=== PATIENT | male | born 1995 | race African-American/Black ===

== ENCOUNTER 2022-05-25 14:10 | Outpatient (CLI) | payer OTHER | END 2022-05-25 14:11 | disposition home or self-care (01) | LOC: TBSIIMAG 14:10 | PROVIDERS: ATTEND Family Medicine | DX: S89.92XD Unspecified injury of left lower leg, subsequent encounter (principal); S83.512A Sprain of anterior cruciate ligament of left knee, initial encounter; S83.242A Other tear of medial meniscus, current injury, left knee, initial encounter; S83.282A Other tear of lateral meniscus, current injury, left knee, initial encounter; S80.02XA Contusion of left knee, initial encounter; R60.0 Localized edema ==

== ENCOUNTER 2022-08-15 06:15 | Observation (INO) | payer OTHER ==
[2022-08-14 13:42] VITALS: BMI 42.4
[2022-08-15] MEDS ORDERED: Fentanyl 100 MCG/2 ML VIAL ONE (06:49)
[2022-08-15] MEDS ORDERED: Midazolam HCl 2 mg/2 ml Vial ONE (06:49)
[2022-08-15] MEDS ORDERED: Lidocaine 1% PF 5 ML VIAL ONE (07:02)
[2022-08-15] MEDS ORDERED: Bupivacaine HCl 0.5%/Epinephrine 1:200,000/PF 30 ml Vial ONE (07:02)
[2022-08-15] MEDS ORDERED: Ketorolac Tromethamine 30 MG/ML VIAL ONE (07:02)
[2022-08-15] MEDS ORDERED: Dexamethasone 20 MG/5 ML VIAL ONE (07:02)
[2022-08-15] MEDS ORDERED: PROPOFOL 200 MG/20 ML VIAL ONE (07:02)
[2022-08-15] MEDS ORDERED: Ondansetron PF 4 MG/2 ML Vial ONE ×2 (07:02→12:06)
[2022-08-15] MEDS ORDERED: CEFAZOLIN 2 GM VIAL ONE ×2 (07:16→15:27)
[2022-08-15] MEDS ORDERED: Sodium Chloride 0.9% 100 ML ONE ×2 (07:16→15:27)
[2022-08-15] MEDS ORDERED: HYDROmorphone 2 MG/ML VIAL ONE (07:39)
[2022-08-15] MEDS ORDERED: Fentanyl 250 MCG/5 ML VIAL ONE (07:39)
[2022-08-15] MEDS ORDERED: VANCOMYCIN 2 GRAM/500 ML BAG 2 GM in Premix Bag 1 BAG IVPB SCH (07:45)
[2022-08-15] MEDS ORDERED: Promethazine HCl 25 MG/ML VIAL IM PRN ×3 (07:48→10:15)
[2022-08-15] MEDS ORDERED: Ondansetron PF 4 MG/2 ML Vial IVP PRN ×2 (07:48→10:15)
[2022-08-15] MEDS ORDERED: Zolpidem Tartrate 5 MG TAB PO PRN ×2 (07:48→10:15)
[2022-08-15] MEDS ORDERED: HYDROcodone/Acetaminophen 5/325 mg Tablet PO PRN ×2 (07:49)
[2022-08-15] MEDS ORDERED: traMADol HCl 50 MG TAB PO PRN ×4 (07:49→10:15)
[2022-08-15] MEDS ORDERED: HYDROmorphone 2 MG/ML VIAL SLOW IVP PRN (07:50)
[2022-08-15] MEDS ORDERED: Meperidine HCl/PF 25 MG/ML VIAL SLOW IVP PRN (07:50)
[2022-08-15] MEDS ORDERED: HYDROcodone/Acetaminophen 7.5/325 mg Tablet PO PRN ×2 (07:52)
[2022-08-15] MEDS ORDERED: Bisacodyl 10 MG SUPP PR PRN (07:52)
[2022-08-15] MEDS ORDERED: Acetaminophen 500 MG TAB PO PRN (07:52)
[2022-08-15] MEDS ORDERED: diphenhydrAMINE 50 MG CAP PO PRN (07:52)
[2022-08-15] MEDS ORDERED: Methocarbamol 500 MG TAB PO PRN (07:52)
[2022-08-15] MEDS ORDERED: Milk Of Magnesia 30 ML UDCUP PO PRN (07:52)
[2022-08-15] MEDS ORDERED: Ropivacaine 500 MG/250 ML CADD NERVE BLCK SCH (08:00)
[2022-08-15 08:02] LABS: SARS-CoV-2 NAA Rapid Test Not Detected (NotDetected)
[2022-08-15] MEDS ORDERED: Ropivacaine HCl/PF 250 ML in Premix Bag 1 BAG NERVE BLCK SCH (09:00)
[2022-08-15] MEDS ORDERED: VANCOMYCIN 2 GRAM/400 ML BAG IVPB SCH (09:00)
[2022-08-15] MEDS ORDERED: Ropivacaine 0.2% 550 ML 550 ML NERVE BLCK SCH (10:15)
[2022-08-15] MEDS ORDERED: Fentanyl 100 MCG/2 ML VIAL IV PRN (10:15)
[2022-08-15] MEDS ORDERED: HYDROcodone/Acetaminophen 10/325 mg Tablet PO PRN (10:15)
[2022-08-15] MEDS ORDERED: CEFAZOLIN 1 GM VIAL ONE (15:27)
[2022-08-15] MEDS: CEFAZOLIN 2 GM in Sodium Chloride 0.9% 100 ML IVPB SCH ×2 (15:30→18:11)
[2022-08-15] MEDS: Famotidine 20 MG TAB PO SCH ×2 (18:11→20:59)
[2022-08-15] MEDS: Dextrose 5 %-0.45 % NaCl 1,000 ML IV SCH (18:11)
[2022-08-15] MEDS: Ketorolac Tromethamine 30 MG/ML VIAL IVP SCH ×3 (18:12→23:18)
[2022-08-15] MEDS: VANCOMYCIN 2 GRAM/500 ML BAG 2 GM in Premix Bag 1 BAG IVPB SCH (20:59)
[2022-08-15] MEDS: HYDROcodone/Acetaminophen 10/325 mg Tablet PO PRN (21:07)
[2022-08-16] MEDS: Dextrose 5 %-0.45 % NaCl 1,000 ML IV SCH (05:18)
[2022-08-16] MEDS: Ketorolac Tromethamine 30 MG/ML VIAL IVP SCH ×2 (05:19→11:05)
[2022-08-16] MEDS: HYDROcodone/Acetaminophen 10/325 mg Tablet PO PRN (05:43)
[2022-08-16] MEDS: VANCOMYCIN 2 GRAM/500 ML BAG 2 GM in Premix Bag 1 BAG IVPB SCH (08:06)
[2022-08-16] MEDS: Famotidine 20 MG TAB PO SCH (08:08)
[2022-08-16 12:55] VITALS: BP 147/93; TEMP 98.1
== END 2022-08-16 13:25 | disposition home or self-care (01) ==
LOC: SDC 06:15 → SURG A 17:22
PROVIDERS: ADMIT Orthopaedic Surgery; ATTEND Orthopaedic Surgery
PROC: 0MRP47Z Replacement of Left Knee Bursa and Ligament with Autologous Tissue Substitute, Percutaneous Endoscopic Approach (ICD-10-PCS; principal; 2022-08-15)
PROC: 0SQD4ZZ Repair Left Knee Joint, Percutaneous Endoscopic Approach (ICD-10-PCS; 2022-08-15)
DX: S83.512A Sprain of anterior cruciate ligament of left knee, initial encounter (principal); S83.272A Complex tear of lateral meniscus, current injury, left knee, initial encounter; F17.290 Nicotine dependence, other tobacco product, uncomplicated; Z20.822 Contact with and (suspected) exposure to COVID-19; W22.8XXA Striking against or struck by other objects, initial encounter; Y99.0 Civilian activity done for income or pay
CPT/HCPCS: 96374; 96375; 96376; A4306; C1713; C1776; C1898; G0378; J0690; J1100; J1170; J1885; J2250; J2405; J2704; J2795; J3010; J3370; J3490; U0002

== ENCOUNTER 2022-10-13 12:08 | Emergency (ER) | payer OTHER, SELFPAY | END 2022-10-13 12:46 | disposition home or self-care (01) | LOC: ERS 12:08 | DX: H66.92 Otitis media, unspecified, left ear (principal) | CPT/HCPCS: 99282 ==

== ENCOUNTER 2023-08-21 07:18 | Emergency (ER) | payer MEDICAID, OTHER | END 2023-08-21 08:22 | disposition home or self-care (01) | LOC: ERS 07:18 | DX: B34.9 Viral infection, unspecified (principal); F17.290 Nicotine dependence, other tobacco product, uncomplicated | CPT/HCPCS: 71046 ==